=== PATIENT | female | born 1990 | race Caucasian/White ===

== ENCOUNTER 2018-03-27 20:32 | Inpatient (IN) | payer BC ==
[~2018-03-27] VITALS: Ht 167.6 cm; Wt 88.8 kg
[2018-03-27 20:40] VITALS: BP 132/73
[2018-03-27] MEDS ORDERED: OXYTOCIN 30U/ 0.9% NaCL 500ML 500 ML IV ONE (20:55)
[2018-03-27] MEDS ORDERED: AMPICILLIN 2 GM in SODIUM CHLORIDE 0.9% 100 ML IVPB STA (20:55)
[2018-03-27] MEDS ORDERED: OXYTOCIN 30U/ 0.9% NaCL 500ML 500 ML IV PRN (20:55)
[2018-03-27] MEDS ORDERED: D5%-LACTATED RINGERS 1,000 ML IV SCH (20:55)
[2018-03-27] MEDS ORDERED: CALCIUM CARBONATE 500 MG TAB.CHEW PO PRN (21:00)
[2018-03-27] MEDS ORDERED: FENTANYL PF 100 MCG/2ML IV PRN (21:00)
[2018-03-27] MEDS ORDERED: ONDANSETRON 2MG/ML, 2ML IVPush PRN (21:00)
[2018-03-27] MEDS ORDERED: FENTANYL PF 100 MCG/2ML IVPush PRN (21:00)
[2018-03-27] MEDS ORDERED: AMPICILLIN 1 GM in SODIUM CHLORIDE 0.9% 100 ML IVPB SCH (21:00)
[2018-03-27] MEDS ORDERED: PLEASE ENTER ALLERGIES MC SCH ×2 (21:30)
[2018-03-27] MEDS: LACTATED RINGERS 1,000 ML IV SCH (21:30)
[2018-03-27 21:41] LABS: BASOPHILS # (AUTO) 0.03 x10^3/uL (0-0.1); BASOPHILS % (AUTO) 0 % (0-1); EOSINOPHILS # (AUTO) 0.07 x10^3/uL (0-0.4); EOSINOPHILS % (AUTO) 0 % (1-7); LYMPHOCYTES # (AUTO) 2.91 x10^3/uL (1-3.4); LYMPHOCYTES % (AUTO) 17 % (22-44); MD NO; MEAN CORPUSCULAR HEMOGLOBIN 28.3 pg (27.0-34.8); MEAN CORPUSCULAR HGB CONC 33.2 g/dL (32.4-35.8); MEAN CORPUSCULAR VOLUME 85.3 fL (80-100); MEAN PLATELET VOLUME 7.7 fL (7.4-10.4); MONOCYTES % (AUTO) 7 % (2-9); NEUTROPHILS # (AUTO) 13.11 x10^3/uL (1.8-6.8); NEUTROPHILS % (AUTO) 76 % (42-75); PLATELET COUNT 339 x10^3/uL (130-400); RED BLOOD COUNT 4.37 x10^6/uL (3.82-5.3); RED CELL DISTRIBUTION WIDTH 14.7 % (9.6-15.2)
[2018-03-27] MEDS ORDERED: AMPICILLIN 2 GM in SODIUM CHLORIDE 0.9% 100 ML IVPB ONE (22:00)
[2018-03-27] MEDS ORDERED: MISOPROSTOL 200 MCG TABLET PR PRN (23:30)
[2018-03-28] MEDS ORDERED: OXYTOCIN 30U/ 0.9% NaCL 500ML 500 ML ONE ×2 (01:23→12:39)
[2018-03-28] MEDS: AMPICILLIN 1 GM in SODIUM CHLORIDE 0.9% 100 ML IV SCH ×3 (01:26→09:30)
[2018-03-28] MEDS: LACTATED RINGERS 1,000 ML IV SCH ×2 (02:28→05:51)
[2018-03-28] MEDS ORDERED: LACTATED RINGERS 1,000 ML IV SCH (06:04)
[2018-03-28] MEDS ORDERED: FENTANYL/BUPIV./NS/PF 250 ML EPIDCONT SCH (06:04)
[2018-03-28] MEDS ORDERED: BUPIVACAINE 0.25% ONE ×2 (06:06→06:10)
[2018-03-28] MEDS ORDERED: FENTANYL/BUPIV./NS/PF 250 ML EPIDCONT ONE ×2 (06:06→06:10)
[2018-03-28] MEDS ORDERED: EPHEDRINE 50 MG/ML, 1ML IVPush PRN (06:30)
[2018-03-28] MEDS ORDERED: NALOXONE 0.4 MG/ML, 1ML IVPush PRN (06:30)
[2018-03-28] MEDS ORDERED: LACTATED RINGERS 1,000 ML IVBOLUS PRN (06:30)
[2018-03-28] MEDS: PRENATAL VIT/IRON/FA 1 EACH TABLET PO SCH (09:00)
[2018-03-28] MEDS: OXYTOCIN 30U/ 0.9% NaCL 500ML 500 ML IV SCH ×3 (09:04→19:04)
[2018-03-28] MEDS ORDERED: IBUPROFEN 600 MG TABLET ONE (12:39)
[2018-03-28] MEDS: IBUPROFEN 600 MG TABLET PO PRN ×2 (13:23→21:35)
[2018-03-28 14:45] VITALS: BP 116/74
[2018-03-28 19:50] LABS: MEAN CORPUSCULAR HEMOGLOBIN 28.1 pg (27.0-34.8); MEAN CORPUSCULAR HGB CONC 33.3 g/dL (32.4-35.8); MEAN CORPUSCULAR VOLUME 84.2 fL (80-100); MEAN PLATELET VOLUME 7.6 fL (7.4-10.4); PLATELET COUNT 309 x10^3/uL (130-400); RED BLOOD COUNT 4.27 x10^6/uL (3.82-5.3); RED CELL DISTRIBUTION WIDTH 14.6 % (9.6-15.2)
[2018-03-28 20:21] LABS: BASOPHILS # (AUTO) 0.01 x10^3/uL (0-0.1); BASOPHILS % (AUTO) 0 % (0-1); EOSINOPHILS # (AUTO) 0.07 x10^3/uL (0-0.4); EOSINOPHILS % (AUTO) 0 % (1-7); LYMPHOCYTES # (AUTO) 1.88 x10^3/uL (1-3.4); LYMPHOCYTES % (AUTO) 9 % (22-44); MD SCAN; MONOCYTES # (AUTO) 1.11 x10^3/uL (0.2-0.8); MONOCYTES % (AUTO) 5 % (2-9); NEUTROPHILS # (AUTO) 17.48 x10^3/uL (1.8-6.8); NEUTROPHILS % (AUTO) 85 % (42-75)
[2018-03-28 21:00] VITALS: BP 110/72
[2018-03-29 00:02] VITALS: BP 114/71
[2018-03-29] MEDS: IBUPROFEN 600 MG TABLET PO PRN ×4 (03:30→22:27)
[2018-03-29 04:00] VITALS: BP 108/72
[2018-03-29] MEDS: OXYcodone/APAP 5/325MG TABLET PO PRN ×4 (04:43→22:27)
[2018-03-29 07:15] VITALS: BP 109/60
[2018-03-29] MEDS: PRENATAL VIT/IRON/FA 1 EACH TABLET PO SCH (08:53)
[2018-03-29] MEDS: DOCUSATE 100 MG CAPSULE PO PRN (08:53)
[2018-03-29 19:32] VITALS: BP 118/69
[2018-03-30] MEDS: OXYcodone/APAP 5/325MG TABLET PO PRN (04:40)
[2018-03-30] MEDS: IBUPROFEN 600 MG TABLET PO PRN (04:41)
[2018-03-30 07:42] VITALS: BP 107/68
[2018-03-30] MEDS: PRENATAL VIT/IRON/FA 1 EACH TABLET PO SCH (08:44)
[2018-03-30] MEDS: DOCUSATE 100 MG CAPSULE PO PRN (08:44)
[2018-03-30] MEDS ORDERED: IBUP-1222 PO (09:43)
== END 2018-03-30 10:50 | disposition home or self-care (01) | DRG 775 ==
LOC: LDOP 20:32 → LDIP 21:10 → 2NW 03-28 14:24
PROVIDERS: ADMIT Obstetrics & Gynecology; ATTEND Obstetrics & Gynecology
PROC: 10E0XZZ Delivery of Products of Conception, External Approach (ICD-10-PCS; principal; 2018-03-28)
PROC: 3E0R3BZ Introduction of Anesthetic Agent into Spinal Canal, Percutaneous Approach (ICD-10-PCS; 2018-03-28)
PROC: 00HU33Z Insertion of Infusion Device into Spinal Canal, Percutaneous Approach (ICD-10-PCS; 2018-03-28)
DX: O69.81X0 Labor and delivery complicated by cord around neck, without compression, not applicable or unspecified (principal); O71.82 Other specified trauma to perineum and vulva; Z37.0 Single live birth; Z3A.38 38 weeks gestation of pregnancy
CPT/HCPCS: 36415; 85025; 86850; 86900; J0290; J3490; J2590; J3010; J7120